=== PATIENT | male | born 1995 | race Caucasian/White ===

== ENCOUNTER 2019-07-02 17:39 | Emergency (ER) | payer OTHER ==
[~2019-07-02] VITALS: Ht 175.3 cm; Wt 142.9 kg
[~2019-07-02 17:39] MED LIST: MPR22T TP
--- OUTSIDE RECORDS SUMMARY | 2019-07-02 17:44 | XMS REPORT ---
Author Author Migration, Doctor Organization [facility] Address Unknown Phone Unavailable Care Team Providers Care Toilet And Laundry Soap Supervisor Name Role Phone Migration, Doctor Unavailable Unavailable PROBLEMS Type Condition ICD9-CM Code SJL05-XT Code Onset Dates Condition Status SNOMED Code Problem Dietary surveillance and counseling V65.3 Active 129629651 Problem Acute upper respiratory infections of unspecified site 465.9 Active 89542331 Problem Obesity, unspecified 278.00 Active 606165609 Problem Intestinal infection due to other organism, NEC 008.8 Active 65074964 Problem Acute sinusitis, unspecified 461.9 Active 66481219 Problem Unspecified essential hypertension 401.9 Active 51349786 Problem Allergic rhinitis due to pollen 477.0 Active 33010740 Problem Depressive disorder, not elsewhere classified 311 Active 47874523 ALLERGIES No Information ENCOUNTERS Encounter Location Date Diagnosis [facility] [address] [address] Sep, Encounter for immunization Z23 [facility] [address] [address] Feb, [facility] [address] [address] Feb, [facility] [id number] [place] [address] Nov, [facility] [id number] [place] [address] Nov, [facility] [address] [address] Jun, [facility] [address] [address] Jun, [facility] [id number] [place] [address] May, [facility] [place] [facility] [address] [id number] [place] [address] May, [facility] [place] [facility] [address] [id number] [place] [address] Apr, [facility] [place] [facility] [address] [id number] [place] [address] Apr, [facility] [place] [facility] [address] [id number] [place] [address] Feb, [facility] [place] [facility] [address] [id number] [place] [address] Feb, [facility] [place] [facility] [address] [id number] [place] [address] Dec, [facility] [place] [facility] [address] [id number] [place] [address] Dec, [facility] [place] [facility] [address] [id number] [place] [address] Sep, [facility] [place] [facility] [address] [id number] [place] [address] Sep, [facility] [place] [facility] [address] [id number] [place] [address] March, [facility] [place] [facility] [address] [id number] [place] [address] March, [facility] [place] [facility] [address] [id number] [place] [address] March, [facility] [place] [facility] [address] [id number] [place] [address] March, [facility] [place] [facility] [address] [id number] [place] [address] March, [facility] [place] [facility] [address] [id number] [place] [address] Feb, [facility] [place] [facility] [address] [id number], [place] [address] Jan, [facility] [address] [id number] [address] Nov, [facility] [address], [place] [address] Aug, [facility] [address], [place] [address] Aug, [facility] [address], [place] [address] May, [facility] [address], [place] [address] March, [facility] [id number] [place] [address] Feb, [facility] [address], [place] [address] Dec, [facility] [address], [place] [address] Jul, [facility] [address], [place] [address] Sep, [facility] [address], [place] [address] Sep, [facility] [address] [id number] [address] Sep, IMMUNIZATIONS No Known Immunizations SOCIAL HISTORY Never Assessed REASON FOR VISIT [facility] [place] VITAL SIGNS MEDICATIONS Medication Instructions Dosage Frequency Start Date End Date Duration Status Ulesfia 5 % 1 ronn by Topical route 1 time per week for 2 dose(s) May, Active Sklice 0.5 % 1 Ronn by Topical route every week Apply to dry hair. leave on 10 minutes and rinse hair. Comb out hair Nov, Active fluticasone 50 mcg/actuation 2 sprays by Nasal route 1 time per day March, Active Natroba 0.9 % apply 120 mL by Topical route 1 time per day Jun, Active cetirizine 10 mg 1 tablet by Oral route 1 daily March, Active RESULTS No Results PROCEDURES No Known procedures INSTRUCTIONS MEDICATIONS ADMINISTERED No Known Medications
--- OUTSIDE RECORDS SUMMARY | 2019-07-02 17:44 | XMS REPORT ---
Author Author Migration, Doctor Organization [facility] Address Unknown Phone Unavailable Care Team Providers Care Bowl Sander Name Role Phone Migration, Doctor Unavailable Unavailable PROBLEMS Type Condition ICD9-CM Code HQW52-ID Code Onset Dates Condition Status SNOMED Code Problem Dietary surveillance and counseling V65.3 Active 868596548 Problem Acute upper respiratory infections of unspecified site 465.9 Active 66842383 Problem Obesity, unspecified 278.00 Active 219749555 Problem Intestinal infection due to other organism, NEC 008.8 Active 56205652 Problem Acute sinusitis, unspecified 461.9 Active 50821573 Problem Unspecified essential hypertension 401.9 Active 14566035 Problem Allergic rhinitis due to pollen 477.0 Active 05521756 Problem Depressive disorder, not elsewhere classified 311 Active 41942152 ALLERGIES No Information ENCOUNTERS Encounter Location Date Diagnosis [facility] [address] [address] Sep, Encounter for immunization Z23 [facility] [address] [address] Feb, [facility] [address] [address] Feb, [facility] [id number] [place] [address] Nov, [facility] [id number] [place] [address] Nov, [facility] [address] [address] Jun, [facility] [address] [address] Jun, [facility] [id number] [place] [address] May, [facility] [place] [facility] [address] [id number] [place] [address] May, [facility] [place] [facility] [address] [id number] [place] [address] Apr, [facility] [place] [facility] [address] [id number] [place] [address] Apr, [facility] [place] [facility] [address] [id number] [place] [address] Feb, [facility] [place] [facility] [address] [id number] [place] [address] Feb, [facility] [place] [facility] [address] [id number] [place] [address] Dec, [facility] [place] [facility] [address] [id number] [place] [address] Dec, [facility] [place] [facility] [address] [id number] [place] [address] Sep, [facility] [place] [facility] [address] [id number] [place] [address] Sep, [facility] [place] [facility] [address] [id number] [place] [address] March, [facility] [place] [facility] [address] [id number] [place] [address] March, [facility] [place] [facility] [address] [id number] [place] [address] March, [facility] [place] [facility] [address] [id number] [place] [address] March, [facility] [place] [facility] [address] [id number] [place] [address] March, [facility] [place] [facility] [address] [id number] [place] [address] Feb, [facility] [place] [facility] [address] [id number] [address] Jan, [facility] [address] [facility] [id number] [address] Nov, [facility] [address] [facility] [id number] [address] Aug, [facility] [address] [address] Aug, [facility] [address] [facility] [id number] [address] May, [facility] [id number] [address] March, [facility] [address] [address] Feb, [facility] [address] [address] Dec, [facility] [address] [address] Jul, [facility] [address] [address] Sep, [facility] [address] [address] Sep, [facility] [id number] [address] Sep, IMMUNIZATIONS No Known Immunizations SOCIAL HISTORY Never Assessed REASON FOR VISIT [facility] [place] PLAN OF CARE VITAL SIGNS MEDICATIONS Unknown Medications RESULTS No Results PROCEDURES No Known procedures INSTRUCTIONS MEDICATIONS ADMINISTERED No Known Medications
--- OUTSIDE RECORDS SUMMARY | 2019-07-02 17:44 | XMS REPORT ---
Author Author Migration, Doctor Organization [facility] Address Unknown Phone Unavailable Care Team Providers Care Piece Goods Clerk Name Role Phone Migration, Doctor Unavailable Unavailable PROBLEMS Type Condition ICD9-CM Code YJW13-BU Code Onset Dates Condition Status SNOMED Code Problem Dietary surveillance and counseling V65.3 Active 662697202 Problem Acute upper respiratory infections of unspecified site 465.9 Active 30038439 Problem Obesity, unspecified 278.00 Active 717181832 Problem Intestinal infection due to other organism, NEC 008.8 Active 30575892 Problem Acute sinusitis, unspecified 461.9 Active 57331145 Problem Unspecified essential hypertension 401.9 Active 07388354 Problem Allergic rhinitis due to pollen 477.0 Active 47564555 Problem Depressive disorder, not elsewhere classified 311 Active 52319960 ALLERGIES No Information ENCOUNTERS Encounter Location Date Diagnosis [facility] [address] [address] Sep, Encounter for immunization Z23 [facility] [address] [address] Feb, [facility] [address] [address] Feb, [facility] [id number] [place] [address] Nov, [facility] [id number] [place] [address] Nov, [facility] [address] [address] Jun, [facility] [address] [address] Jun, [facility] [id number] [place] [address] May, [facility] [place] [facility] [address] [id number] [place] [address] May, [facility] [place] [facility] [address] [id number] [place] [address] Apr, [facility] [place] [facility] [address] [id number] [place] [address] Apr, [facility] [place] [facility] [address] [id number] [place] [address] Feb, [facility] [place] [facility] [address] [id number] [place] [address] Feb, [facility] [place] [facility] [address] [id number] [place] [address] Dec, [facility] [place] [facility] [address] [id number] [place] [address] Dec, [facility] [place] [facility] [address] [id number] [place] [address] Sep, [facility] [place] [facility] [address] [id number] [place] [address] Sep, [facility] [place] [facility] [address] [id number] [place] [address] March, [facility] [place] [facility] [address] [id number] [place] [address] March, [facility] [place] [facility] [address] [id number] [place] [address] March, [facility] [place] [facility] [address] [id number] [place] [address] March, [facility] [place] [facility] [address] [id number] [place] [address] March, [facility] [place] [facility] [address] [id number] [place] [address] Feb, [facility] [place] [facility] [address] [id number], [place] [address] Jan, [facility] [address] [facility] [id number], [place] [address] Nov, [facility] [address] [facility] [id number], [place] [address] Aug, [facility] [address], [place] [address] Aug, [facility] [address] [facility] [id number], [place] [address] May, [facility] [address] [id number], [place] [address] March, [facility] [address], [place] [address] Feb, [facility] [address], [place] [address] Dec, [facility] [address], [place] [address] Jul, [facility] [address], [place] [address] Sep, [facility] [address], [place] [address] Sep, [facility] [address] [id number], [place] [address] Sep, IMMUNIZATIONS No Known Immunizations SOCIAL HISTORY Never Assessed REASON FOR VISIT [facility] [place] OF CARE VITAL SIGNS MEDICATIONS Unknown Medications RESULTS No Results PROCEDURES No Known procedures INSTRUCTIONS MEDICATIONS ADMINISTERED No Known Medications
--- OUTSIDE RECORDS SUMMARY | 2019-07-02 17:45 | XMS REPORT ---
Author Author Migration, Doctor Organization [facility] Address Unknown Phone Unavailable Care Team Providers Care Kiln Door Repairer Name Role Phone Migration, Doctor Unavailable Unavailable PROBLEMS Type Condition ICD9-CM Code TOK11-EA Code Onset Dates Condition Status SNOMED Code Problem Dietary surveillance and counseling V65.3 Active 579389176 Problem Acute upper respiratory infections of unspecified site 465.9 Active 75367735 Problem Obesity, unspecified 278.00 Active 460631930 Problem Intestinal infection due to other organism, NEC 008.8 Active 15131113 Problem Acute sinusitis, unspecified 461.9 Active 31124120 Problem Unspecified essential hypertension 401.9 Active 44715468 Problem Allergic rhinitis due to pollen 477.0 Active 85906875 Problem Depressive disorder, not elsewhere classified 311 Active 77067018 ALLERGIES No Information ENCOUNTERS Encounter Location Date Diagnosis [facility] [address] [address] Sep, Encounter for immunization Z23 [facility] [address] [address] Feb, [facility] [address] [address] Feb, [facility] [id number] [place] [address] Nov, [facility] [id number] [place] [address] Nov, [facility] [address] [address] Jun, [facility] [address] [address] Jun, [facility] [id number] [place] [address] May, [facility] [place] [facility] [address] [id number] [place] [address] May, [facility] [place] [facility] [address] [id number] [place] [address] Apr, [facility] [place] [facility] [address] [id number] [place] [address] Apr, [facility] [place] [facility] [address] [id number] [place] [address] Feb, [facility] [place] [facility] [address] [id number] [place] [address] Feb, [facility] [place] [facility] [address] [id number] [place] [address] Dec, [facility] [place] [facility] [address] [id number] [place] [address] Dec, [facility] [place] [facility] [address] [id number] [place] [address] Sep, [facility] [place] [facility] [address] [id number] [place] [address] Sep, [facility] [place] [facility] [address] [id number] [place] [address] March, [facility] [place] [facility] [address] [id number] [place] [address] March, [facility] [place] [facility] [address] [id number] [place] [address] March, [facility] [place] [facility] [address] [id number] [place] [address] March, [facility] [place] [facility] [address] [id number] [place] [address] March, [facility] [place] [facility] [address] [id number] [place] [address] Feb, [facility] [place] [facility] [address] [id number] [address] Jan, [facility] [address] [facility] [id number] [place] [address] Nov, [facility] [address] [facility] [id number] [place] [address] Aug, [facility] [address] [address] Aug, [facility] [address] [facility] [id number] [place] [address] May, [facility] [address] [id number] [address] March, [facility] [address] [address] Feb, [facility] [address] [address] Dec, [facility] [address] [address] Jul, [facility] [address] [address] Sep, [facility] [address] [address] Sep, [facility] [address] [id number] [address] Sep, IMMUNIZATIONS No Known Immunizations SOCIAL HISTORY Never Assessed REASON FOR VISIT [place] [place]AN OF CARE VITAL SIGNS MEDICATIONS Unknown Medications RESULTS No Results PROCEDURES No Known procedures INSTRUCTIONS MEDICATIONS ADMINISTERED No Known Medications
--- OUTSIDE RECORDS SUMMARY | 2019-07-02 17:45 | XMS REPORT ---
Author Author NADINE MARTINES [facility] eClinical[employer] Address Unknown Phone Unavailable Care Team Providers Care Assayer Helper Name Role Phone NADINE MARTINES CP Unavailable Allergies No Known Allergies Problems Problem Type Condition Code Onset Dates Condition Status Problem Intestinal infection due to other organism, NEC 008.8 Active Assessment Encounter for immunization Z23 Active Problem Dietary surveillance and counseling V65.3 Active Problem Allergic rhinitis due to pollen 477.0 Active Problem Depressive disorder, not elsewhere classified 311 Active Problem Unspecified essential hypertension 401.9 Active Problem Acute sinusitis, unspecified 461.9 Active Problem Obesity, unspecified 278.00 Active Problem Acute upper respiratory infections of unspecified site 465.9 Active Medications No Known Medications Procedures Procedure Coding System Code Date SINGLE IMMUNIZATION ADMIN CPT-4 88240 Oct 21, 2015 VARICELLA CPT-4 66327 Oct 21, 2015 Results No Known Results Immunizations Vaccine Administration Date VARICELLA Oct 21, 2015 Summary Purpose eClinicalWorks Submission
--- OUTSIDE RECORDS SUMMARY | 2019-07-02 17:45 | XMS REPORT | Continuity of Care Document ---
Author Organization Unknown Address Unknown Phone Unavailable Allergies Active Description Code Type Severity Reaction Onset Reported/Identified Relationship to Patient Clinical Status Yes Cephalosporins Drug Allergy N/A N/A 04/05/2013 Medications There is no data. Problems Date Dx Coded Attending Type Code Diagnosis Diagnosed By 08/06/2008 845.10 Sprain/strain Foot 08/06/2008 BRIE MAYEN APRN 845.10 Sprain/strain Foot 08/06/2008 845.10 Sprain/strain Foot 08/06/2008 IVANA BRENNER MD 845.10 Sprain/strain Foot 08/06/2008 MICHAEL PORTILLO MD 845.10 Sprain/strain Foot 08/06/2008 AMBREEN DOMINGUEZ DDS 845.10 Sprain/strain Foot 08/06/2008 845.10 Sprain/strain Foot 08/12/2008 462 Pharyngitis Acute 08/12/2008 787.01 Nausea With Vomiting 08/12/2008 787.91 Diarrhea 08/12/2008 BRIE MAYEN APRN 462 Pharyngitis Acute 08/12/2008 BRIE MAYEN APRN 787.01 Nausea With Vomiting 08/12/2008 BRIE MAYEN APRN 787.91 Diarrhea 08/12/2008 462 Pharyngitis Acute 08/12/2008 787.01 Nausea With Vomiting 08/12/2008 787.91 Diarrhea 08/12/2008 IVANA BRENNER MD 46Alhaji Pharyngitis Acute 08/12/2008 IVANA BRENNER MD 787.01 Nausea With Vomiting 08/12/2008 IVANA BRENNER MD 787.91 Diarrhea 08/12/2008 MICHAEL PORTILLO MD 46Alhaji Pharyngitis Acute 08/12/2008 MICHAEL PORTILLO MD 787.01 Nausea With Vomiting 08/12/2008 MICHAEL PORTILLO MD 787.91 Diarrhea 08/12/2008 AMBREEN DOMINGUEZ DDS 46Alhaji Pharyngitis Acute 08/12/2008 AMBREEN DOMINGUEZ DDS 787.01 Nausea With Vomiting 08/12/2008 WHITE DDSAMBREEN J 787.91 Diarrhea 08/12/2008 462 Pharyngitis Acute 08/12/2008 787.01 Nausea With Vomiting 08/12/2008 787.91 Diarrhea 07/18/2009 V70.3 Sports/school Exam 07/18/2009 BRIE MAYEN APRN V70.3 Sports/school Exam 07/18/2009 V70.3 Sports/school Exam 07/18/2009 IVANA BRENNER MD V70.3 Sports/school Exam 07/18/2009 MICHAEL PORTILLO MD V70.3 Sports/school Exam 07/18/2009 AMBREEN DOMINGUEZ DDS V70.3 Sports/school Exam 07/18/2009 V70.3 Sports/school Exam 10/01/2009 008.8 Gastroenteritis Viral 10/01/2009 BRIE MAYEN APRN 008.8 Gastroenteritis Viral 10/01/2009 008.8 Gastroenteritis Viral 10/01/2009 IVANA BRENNER MD 008.8 Gastroenteritis Viral 10/01/2009 MICHAEL PORTILLO MD 008.8 Gastroenteritis Viral 10/01/2009 AMBREEN DOMINGUEZ DDS 008.8 Gastroenteritis Viral 10/01/2009 008.8 Gastroenteritis Viral 10/03/2009 780.79 Malaise And Fatigue 10/03/2009 BRIE MAYEN APRN 780.79 Malaise And Fatigue 10/03/2009 780.79 Malaise And Fatigue 10/03/2009 IVANA BRENNER MD 780.79 Malaise And Fatigue 10/03/2009 MICHAEL PORTILLO MD 780.79 Malaise And Fatigue 10/03/2009 AMBREEN DOMINGUEZ DDS 780.79 Malaise And Fatigue 10/03/2009 780.79 Malaise And Fatigue 12/12/2009 790.29 Prediabetes 12/12/2009 BRIE MAYEN APRN 790.29 Prediabetes 12/12/2009 790.29 Prediabetes 12/12/2009 IVANA BRENNER MD 790.29 Prediabetes 12/12/2009 MICHAEL PORTILLO MD 790.29 Prediabetes 12/12/2009 AMBREEN DOMINGUEZ DDS 790.29 Prediabetes 12/12/2009 790.29 Prediabetes 08/11/2010 079.99 Unspecified Viral Infection In Conditions Classified Elsewhere And Of Unspecified Site 08/11/2010 BRIE MAYEN APRN 079.99 Unspecified Viral Infection In Conditions Classified Elsewhere And Of Unspecified Site 08/11/2010 079.99 Unspecified Viral Infection In Conditions Classified Elsewhere And Of Unspecified Site 08/11/2010 IVANA BRENNER MD 079.99 Unspecified Viral Infection In Conditions Classified Elsewhere And Of Unspecified Site 08/11/2010 MICHAEL PORTILLO MD 079.99 Unspecified Viral Infection In Conditions Classified Elsewhere And Of Unspecified Site 08/11/2010 AMBREEN DOMINGUEZ DDS 079.99 Unspecified Viral Infection In Conditions Classified Elsewhere And Of Unspecified Site 08/11/2010 079.99 Unspecified Viral Infection In Conditions Classified Elsewhere And Of Unspecified Site 08/19/2010 466.0 Acute Bronchitis 08/19/2010 BRIE MAYEN APRN 466.0 Acute Bronchitis 08/19/2010 466.0 Acute Bronchitis 08/19/2010 IVANA BRENNER MD 466.0 Acute Bronchitis 08/19/2010 MICHAEL PORTILLO MD 466.0 Acute Bronchitis 08/19/2010 AMBREEN DOMINGUEZ DDS 466.0 Acute Bronchitis 08/19/2010 466.0 Acute Bronchitis 04/22/2011 V06.5 Dt, Tetanus-diphtheria [td] ,tdap 04/22/2011 BRIE MAYEN APRN V06.5 Dt, Tetanus-diphtheria [td] ,tdap 04/22/2011 V06.5 Dt, Tetanus-diphtheria [td] ,tdap 04/22/2011 IVANA BRENNER MD V06.5 Dt, Tetanus-diphtheria [td] ,tdap 04/22/2011 MICHAEL PORTILLO MD V06.5 Dt, Tetanus-diphtheria [td] ,tdap 04/22/2011 AMBREEN DOMINGUEZ DDS V06.5 Dt, Tetanus-diphtheria [td] ,tdap 04/22/2011 V06.5 Dt, Tetanus-diphtheria [td] ,tdap 01/12/2012 465.9 UPPER RESPIRATORY INFECTION 01/12/2012 BRIE MAYEN APRN 465.9 UPPER RESPIRATORY INFECTION 01/12/2012 465.9 UPPER RESPIRATORY INFECTION 01/12/2012 IVANA BRENNER MD 465.9 UPPER RESPIRATORY INFECTION 01/12/2012 MICHAEL PORTILLO MD 465.9 UPPER RESPIRATORY INFECTION 01/12/2012 AMBREEN DOMINGUEZ DDS 465.9 UPPER RESPIRATORY INFECTION 01/12/2012 465.9 UPPER RESPIRATORY INFECTION 03/31/2012 311 DEPRESSIVE DISORDER NOS 03/31/2012 BRIE MAYEN APRN 311 DEPRESSIVE DISORDER NOS 03/31/2012 311 DEPRESSIVE DISORDER NOS 03/31/2012 IVANA BRENNER MD 311 DEPRESSIVE DISORDER NOS 03/31/2012 MICHAEL PORTILLO MD 311 DEPRESSIVE DISORDER NOS 03/31/2012 AMBREEN DOMINGUEZ DDS 311 DEPRESSIVE DISORDER NOS 03/31/2012 311 DEPRESSIVE DISORDER NOS 09/26/2012 008.8 GASTROENTERITIS, VIRAL 09/26/2012 BRIE MAYEN APRN 008.8 GASTROENTERITIS, VIRAL 09/26/2012 008.8 GASTROENTERITIS, VIRAL 09/26/2012 IVANA BRENNER MD 008.8 GASTROENTERITIS, VIRAL 09/26/2012 MICHAEL PORTILLO MD 008.8 GASTROENTERITIS, VIRAL 09/26/2012 AMBREEN DOMINGUEZ DDS 008.8 GASTROENTERITIS, VIRAL 09/26/2012 008.8 GASTROENTERITIS, VIRAL 02/22/2013 BRIE MAYEN APRN 461.9 SINUSITIS ACUTE 02/22/2013 461.9 SINUSITIS ACUTE 02/22/2013 IVANA BRENNER MD 461.9 SINUSITIS ACUTE 02/22/2013 MICHAEL PORTILLO MD 461.9 SINUSITIS ACUTE 02/22/2013 AMBREEN DOMINGUEZ DDS 461.9 SINUSITIS ACUTE 04/05/2013 278.00 OBESITY 04/05/2013 477.0 ALLERGIC RHINITIS DUE TO POLLEN 04/05/2013 V65.3 COUNSELING - DIETARY 04/05/2013 IVANA BRENNER MD 278.00 OBESITY 04/05/2013 IVANA BRENNER MD 477.0 ALLERGIC RHINITIS DUE TO POLLEN 04/05/2013 IVANA BRENNER MD V65.3 COUNSELING - DIETARY 04/05/2013 MICHAEL PORTILLO MD 278.00 OBESITY 04/05/2013 MICHAEL PORTILLO MD 477.0 ALLERGIC RHINITIS DUE TO POLLEN 04/05/2013 MICHAEL PORTILLO MD V65.3 COUNSELING - DIETARY 04/05/2013 AMBREEN DOMINGUEZ DDS 278.00 OBESITY 04/05/2013 AMBREEN DOMINGUEZ DDS 477.0 ALLERGIC RHINITIS DUE TO POLLEN 04/05/2013 AMBREEN DOMINGUEZ DDS V65.3 COUNSELING - DIETARY 01/22/2014 MICHAEL PORTILLO MD 401.9 UNSPECIFIED ESSENTIAL HYPERTENSION 01/22/2014 AMBREEN DOMINGUEZ DDS 401.9 UNSPECIFIED ESSENTIAL HYPERTENSION Procedures Code Description [place] [address] ROUTINE VENIPUNCTURE 04/06/2013 16336 A1C (IN-HOUSE) 04/06/2013 06786 CBC 04/06/2013 21266 CMP 04/06/2013 95928 LIPID PANEL 04/06/2013 17557 TSH 04/06/2013 65792 T4 FREE 04/06/2013 77300 INSULIN LEVEL 04/07/2013 99935 GLUCOSE 01/22/2014 CARDIOLOG [facility], CARDIOLOGY 01/22/2014 Results There is no data. Encounters ACCT No. Visit Date/Time Discharge Status Pt. Type Provider Facility Loc./Unit Complaint [id number] 04/08/2014 14:50:00 04/08/2014 23:59:59 CLS Outpatient AMBREEN DOMINGUEZ DDS [id number] 01/22/2014 14:39:00 01/22/2014 23:59:59 CLS Outpatient MICHAEL PORTILLO MD [id number] 04/06/2013 09:23:00 04/06/2013 23:59:59 CLS Outpatient IVANA BRENNER MD [id number] 02/22/2013 15:22:00 02/22/2013 23:59:59 CLS Outpatient BRIE MAYEN APRN [id number] 12/07/2012 13:02:00 12/07/2012 23:59:59 CLS Outpatient [id number] 09/26/2012 10:43:00 09/26/2012 23:59:59 CLS Outpatient [id number] 04/05/2013 14:38:00 Document Registration
--- NOTE | 2019-07-02 18:04 | NUR ---
done leroy pt 1813.pt here with " father and mother". pt alert gcs 15. pt relates was at [facility] last week c/o dyspnea and dx with anxiety. pt here now c/o dyspnea. pt appears with ? hyperventilation vs ? kussmauls breathing . pt appears slightly anxious and no carpal pedal spasms noted though pt is on nrm with zero liters of o2 placed by dr earlier. pt denies chest pain. c/o " little" abd pain. denies n/v and relates diarrhea as" i freq. have diarrhea". someone already started iv and lesli labs. pt has no h/o diabetes. tele applied by me shows sr 90. lungs cta with decreased aeration right base anterially. abd firm and nondistended though pt appears obese and overweight including abd. neg pain with palpation and neg pulsating massss noted as pt also c/o back pain. bp machine is 141/89 ausc hr 92 reg ausc resp 40 recheck temp 99.1 though pt feels hotter then that. p ox r/a is 99.
--- NOTE | 2019-07-02 18:07 | NUR ---
Patient is complaining of feeling numb all over and states his hands and face are tingling. Patient is tearful and breathing rapidly. He states this is similar to the last panic attack 1 week ago when he was seen at [facility].
--- NOTE | 2019-07-02 18:10 | ED Respiratory ---
General Chief Complaint: Respiratory Problems Stated Complaint: SOA Nursing Triage Note: Patient brought to Er with complaint of shortness of breath, nasal congestion, and generalized weakness. Patient states this started suddenly today approximately 30 minutes ago. Patient states he was inside working at [employer] when the symptoms began. Patient states he was seen appoximately 2 weeks ago in ER for an anxiety attack. Source: patient Exam Limitations: no limitations History of Present Illness Date Seen by Provider: Jul 02, 2019 Time Seen by Provider: 17:50 Initial Comments Patient presents to ER by private conveyance with mom and dad and chief complaint that about an hour ago he was carrying packages of sher up one and a half flights of stairs and became very short of breath. No chest pain but feeli ng weakness tingling in his hands and numbness in his face. This happened about a month ago when he went to [place] [facility] and was told he had a panic attack. He was put on Lexapro as well as a couple other medications which he's been taking. He says this is different however because while he still had shortness of breath last time he also had vomiting and he doesn't feel nauseated today. He's having no swelling in his hands or feet. No significant medical history no coronary history no past familial history. No recent illness fevers chills nausea vomiting being laid up or immobilized or recent surgeries. Allergies and Home Medications Allergies Uncoded Allergies: DENTAL ANESTHETIC (Adverse Reaction, Severe, SWELLING IN NECK, 07/11/11) Home Medications Mupirocin 22 Gm Tube, 0 TP TID APPLY TO SPARINGLY TO AFFECTED AREA(S) Prescribed by: RALF CUELLO on 07/11/111933 Patient Home Medication List Home Medication List Reviewed: Yes Review of Systems Review of Systems Constitutional: No chills, No fever, No malaise; weakness EENTM: No ear discharge, No ear pain Respiratory: No cough, No phlegm; short of breath; No wheezing Cardiovascular: No chest pain, No edema, No Hx of Intervention, No palpitations Gastrointestinal: No abdominal pain, No constipation, No diarrhea Genitourinary: No discharge, No dysuria Musculoskeletal: No back pain, No joint pain Skin: No pruritus, No rash Psychiatric/Neurological: Denies Headache; Numbness, Paresthesia Past Yijxtdy-Hdljej-Rmqkyo Hx Patient Social History Alcohol Use: Denies Use Recreational Drug Use: No Smoking Status: Never a Smoker 2nd Hand Smoke Exposure: No (stopped chewing tobacco ) Recent Foreign Travel: No Contact w/Someone Who Travel: No Recent Infectious Disease Expo: No Recent Hopitalizations: No Seasonal Allergies Seasonal Allergies: Yes Past Medical History Surgeries: No Respiratory: No Cardiac: No Neurological: No Genitourinary: No Gastrointestinal: No Musculoskeletal: No Endocrine: No HEENT: No Cancer: No Psychosocial: Yes Anxiety Integumentary: No Physical Exam Vital Signs - First Documented 07/02/19 17:45 Temp 100.2 Pulse 95 Resp 20 B/P (MAP) 144/96 (112) Pulse Ox 98 O2 Delivery Room Air Capillary Refill : Less Than 3 Seconds Height: 5'9.00" Weight: 315lbs. oz. 142.772671nd; BMI Method:Stated General Appearance: WD/WN, no apparent distress Eyes: Bilateral Eye Normal Inspection, Bilateral Eye PERRL, Bilateral Eye EOMI HEENT: PERRL/EOMI, normal ENT inspection, pharynx normal Neck: full range of motion, normal inspection Respiratory: chest non-tender, lungs clear, normal breath sounds, no respiratory distress, accessory muscle use (mild) Cardiovascular: normal peripheral pulses, regular rate, rhythm, no edema, no murmur Gastrointestinal: normal bowel sounds, non tender, soft Extremities: normal range of motion, non-tender, normal inspection, no pedal edema, no calf tenderness, normal capillary refill Neurologic/Psychiatric: alert, oriented x 3, other (anxious affect) Skin: normal color, warm/dry Progress/Results/Core Measures Suspected Sepsis Recent Fever Within 48 Hours: No Infection Criteria Present: None New/Unexplained Altered Menta: No Sepsis Screen: No Definite Risk SIRS Temperature:100.2 Pulse: 95 Respiratory Rate: 20 Laboratory Tests 07/02/19 18:00: White Blood Count 10.1 Blood Pressure 144 /96 Mean: 112 Laboratory Tests 07/02/19 18:00: Creatinine 1.18, Platelet Count 304, Total Bilirubin 1.1H Results/Orders Lab Results Laboratory Tests Test 07/02/19 18:00 07/02/19 18:11 07/02/19 18:20 07/02/19 18:33 Range/Units White Blood Count 10.1 4.3-11.0 10^3/uL Red Blood Count 5.83 4.35-5.85 10^6/uL Hemoglobin 17.5 13.3-17.7 G/DL Hematocrit 48 40-54 % Mean Corpuscular Volume 82 80-99 FL Mean Corpuscular Hemoglobin 30 25-34 PG Mean Corpuscular Hemoglobin Concent 37 H 32-36 G/DL Red Cell Distribution Width 12.7 10.0-14.5 % Platelet Count 304 130-400 10^3/uL Mean Platelet Volume 11.7 H 7.4-10.4 FL Neutrophils (%) (Auto) 82 H 42-75 % Lymphocytes (%) (Auto) 13 12-44 % Monocytes (%) (Auto) 4 0-12 % Eosinophils (%) (Auto) 1 0-10 % Basophils (%) (Auto) 0 0-10 % Neutrophils # (Auto) 8.3 H 1.8-7.8 X 10^3 Lymphocytes # (Auto) 1.3 1.0-4.0 X 10^3 Monocytes # (Auto) 0.5 0.0-1.0 X 10^3 Eosinophils # (Auto) 0.1 0.0-0.3 10^3/uL Basophils # (Auto) 0.0 0.0-0.1 10^3/uL Sodium Level 141 135-145 MMOL/L Potassium Level 3.4 L 3.6-5.0 MMOL/L Chloride Level 104 98-107 MMOL/L Carbon Dioxide Level 19 L 21-32 MMOL/L Anion Gap 18 H 5-14 MMOL/L Blood Urea Nitrogen 14 7-18 MG/DL Creatinine 1.18 0.60-1.30 MG/DL Estimat Glomerular Filtration Rate > 60 BUN/Creatinine Ratio 12 Glucose Level 117 H 70-105 MG/DL Calcium Level 11.2 H 8.5-10.1 MG/DL Corrected Calcium 8.5-10.1 MG/DL Total Bilirubin 1.1 H 0.1-1.0 MG/DL Aspartate Amino Transf (AST/SGOT) 44 H 5-34 U/L Alanine Aminotransferase (ALT/SGPT) 75 H 0-55 U/L Alkaline Phosphatase 58 40-136 U/L Troponin I < 0.028 <0.028 NG/ML C-Reactive Protein High Sensitivity 0.31 0.00-0.50 MG/DL B-Type Natriuretic Peptide < 10.0 <100.0 PG/ML Total Protein 10.0 H 6.4-8.2 GM/DL Albumin 5.5 H 3.2-4.5 GM/DL Glucometer 116 H 70-110 MG/DL Blood Gas Puncture Site RIGHT RADIAL Blood Gas Patient Temperature 98.7 Arterial Blood pH 7.62 *H 7.37-7.43 Arterial Blood Partial Pressure CO2 15 *L 35-45 MMHG Arterial Blood Partial Pressure O2 142 H 79-93 MMHG Arterial Blood HCO3 16 *L 23-27 MMOL/L Arterial Blood Total CO2 16.5 L 21.0-31.0 MMOL/L Arterial Blood Oxygen Saturation 100 94-100 % Arterial Blood Base Excess -5.3 L -2.5-2.5 MMOL/L Lucius Test POSITIVE Blood Gas Ventilator Setting NO Blood Gas Inspired Oxygen N Urine Color YELLOW Urine Clarity CLEAR Urine pH 8 5-9 Urine Specific [place] 1.015 L 1.016-1.022 Urine Protein 3+ H NEGATIVE Urine Glucose (UA) NEGATIVE NEGATIVE Urine Ketones 2+ H NEGATIVE Urine Nitrite NEGATIVE NEGATIVE Urine Bilirubin 1+ H NEGATIVE Urine Urobilinogen 12 H NORMAL MG/DL Urine Leukocyte Esterase 1+ H NEGATIVE Urine RBC (Auto) NEGATIVE NEGATIVE Urine RBC RARE /HPF Urine WBC 0-2 /HPF Urine Squamous Epithelial Cells NONE /HPF Urine Crystals NONE /LPF Urine Bacteria NEGATIVE /HPF Urine Casts NONE /LPF Urine Mucus SMALL H /LPF Urine Culture Indicated NO Urine Opiates Screen NEGATIVE NEGATIVE Urine Oxycodone Screen NEGATIVE NEGATIVE Urine Methadone Screen NEGATIVE NEGATIVE Urine Propoxyphene Screen NEGATIVE NEGATIVE Urine Barbiturates Screen NEGATIVE NEGATIVE Ur Tricyclic Antidepressants Screen NEGATIVE NEGATIVE Urine Phencyclidine Screen NEGATIVE NEGATIVE Urine Amphetamines Screen NEGATIVE NEGATIVE Urine Methamphetamines Screen NEGATIVE NEGATIVE Urine Benzodiazepines Screen POSITIVE H NEGATIVE Urine Cocaine Screen NEGATIVE NEGATIVE Urine Cannabinoids Screen NEGATIVE NEGATIVE My Orders Orders - JANIYA SHOOK Chest Pa/Lat (2 View) (07/02/19 18:06) BNP (07/02/19 18:06) Cbc With Automated Diff (07/02/19 18:06) Comprehensive Metabolic Panel (07/02/19 18:06) Hs C Reactive Protein (07/02/19 18:06) Drug Screen Stat (Urine) (07/02/19 18:06) Ua Culture If Indicated (07/02/19 18:06) Troponin I (07/02/19 18:06) Continuous Ekg Monitoring (07/02/19 18:06) Ekg Tracing (07/02/19 18:06) Accucheck Stat ONCE (07/02/19 18:10) Lorazepam Injection (Ativan Injection) (07/02/19 18:30) Arterial Blood Gas (07/02/19 18:25) Medications Given in ED Current Medications Medications Dose Ordered Sig/Donna Route Start Time Stop Time Status Last Admin Dose Admin Lorazepam 0.5 mg ONCE ONCE IVP 07/02/19 18:30 07/02/19 18:31 DC 07/02/19 18:27 0.5 MG Vital Signs/I&O 07/02/19 17:45 Temp 100.2 Pulse 95 Resp 20 B/P (MAP) 144/96 (112) Pulse Ox 98 O2 Delivery Room Air Capillary Refill : Less Than 3 Seconds Blood Pressure Mean: 112 Progress Note #1: Time: 18:20 Progress Note Patient has a history of panic attacks and appears to be having one now. We will do a thorough examination looking for pneumonia, blood clots, cardiac dysrhythmia, elevated troponin, fluid overload etc. however we put a nonrebreather which has helped some and will get an ABG and give him half a milligram of Ativan. Progress Note #2: Time: 18:55 Progress Note Patient is feeling much better more relaxed. No accessory muscle use of breathing. The Ativan has helped significantly. He does have Xanax prescribed to him but because he left the home he did not have it available today. We did lengthy counseling and taught him some coping mechanisms as well as encouraged outpatient counseling. He has follow-up with Dr. Kim. We will suggest that he increase the dose to 15 mg since he's been on it for a week and follow-up with the primary care doctor. Labs all suggest that he has blown off all his CO2 and has good oxygenation. Since he is not having hypoxia, intractable pain from a traumatic incident, high altitude sickness or other source of his hyperventilation then it must be from anxiety. ECG Initial ECG Impression Date: Jul 02, 2019 Initial ECG Impression Time: 18:25 Initial ECG Rate: 77 Initial ECG Rhythm: Normal Sinus Initial ECG Intervals: Normal Initial ECG Impression: Normal, Nonspecific Changes Initial ECG Comparisson: No Previous ECG Available Comment Interpreted ventricular conduction delay that's nonspecific. Normal sinus rhythm otherwise without any ST elevation or depression. Diagnostic Imaging Diagonstic Imaging: Xray Plain Films/CT/US/NM/MRI: chest (2v) Comments No acute cardiopulmonary process. Reviewed: Reviewed by Me Departure Impression Primary Impression: Panic attack as reaction to stress Disposition: 01 HOME, SELF-CARE Condition: Improved Departure-Patient Inst. Decision time for Depature: 18:59 Referrals: TYLOR KIM MD (PCP/Family) Primary Care Physician Patient Instructions: Panic Disorder (DC) Add. Discharge Instructions: Get some sleep today. Drink plenty of fluids. At the first sign that you're anxiety is getting worse such as cold clammy or numb hands or face, narrowing, tunnel vision or increasing shortness of breath then you should take a tablet of Xanax as prescribed. Cut one of your 10 mg escitalopram/Lexapro tablets in half and take one and a half tablets for a total of 15 mg daily until you see Dr. Kim. I suggest you follow-up in the next week or 2. Consider looking into counseling for supportive measures and how to manage your stress. All discharge instructions reviewed with patient and/or family. Voiced understanding. Work/School Note: Work Release Form Date Seen in the Emergency Department: Jul 02, 2019 Return to Work: Jul 03, 2019 Restrictions: No Restrictions Copy Copies To 1: TYLOR KIM MD, TITUS J Jul 02, 2019 18:10
--- NOTE | 2019-07-02 18:12 | NUR ---
blood sugar by glucometer by me is 116. knows
[2019-07-02 18:13] LABS: BASOPHILS % (AUTO) 0 % (0-10); EOSINOPHILS # (AUTO) 0.1 10^3/uL (0.0-0.3); EOSINOPHILS % (AUTO) 1 % (0-10); HEMATOCRIT 48 % (40-54); HEMOGLOBIN 17.5 G/DL (13.3-17.7); LYMPHOCYTES # (AUTO) 1.3 X 10^3 (1.0-4.0); LYMPHOCYTES % (AUTO) 13 % (12-44); MEAN CORPUSCULAR HEMOGLOBIN 30 PG (25-34); MEAN CORPUSCULAR HGB CONC 37 G/DL (32-36); MEAN CORPUSCULAR VOLUME 82 FL (80-99); MEAN PLATELET VOLUME 11.7 FL (7.4-10.4); MONOCYTES # (AUTO) 0.5 X 10^3 (0.0-1.0); MONOCYTES % (AUTO) 4 % (0-12); NEUTROPHILS # (AUTO) 8.3 X 10^3 (1.8-7.8); NEUTROPHILS % (AUTO) 82 % (42-75); PLATELET COUNT 304 10^3/uL (130-400); RED CELL DISTRIBUTION WIDTH 12.7 % (10.0-14.5); WHITE BLOOD COUNT 10.1 10^3/uL (4.3-11.0)
[2019-07-02 18:28] LABS: ABG BASE EXCESS -5.3 MMOL/L (-2.5-2.5); ABG OXYGEN SATURATION 100 % (94-100); ABG PO2 142 MMHG (79-93); ABG TCO2 16.5 MMOL/L (21.0-31.0); ALLENS TEST POSITIVE; INSPIRED O2 N; PATIENT TEMP 98.7; VENTILATOR NO
--- NOTE | 2019-07-02 18:29 | NUR ---
someone doing ekg
[2019-07-02 18:30] LABS: ABG PCO2 15 MMHG (35-45); ABG PH 7.62 (7.37-7.43)
[2019-07-02] MEDS ORDERED: LORazepam INJ 2 MG/ML (ATIVAN) VIAL IVP ONE (18:30)
[2019-07-02 18:32] LABS: ALANINE AMINOTRANSFERASE 75 U/L (0-55); ALBUMIN 5.5 GM/DL (3.2-4.5); ALKALINE PHOSPHATASE 58 U/L (40-136); BILIRUBIN,TOTAL 1.1 MG/DL (0.1-1.0); BUN/CREATININE RATIO 12; CALCIUM 11.2 MG/DL (8.5-10.1); CARBON DIOXIDE 19 MMOL/L (21-32); CHLORIDE 104 MMOL/L (98-107); CREATININE SERUM 1.18 MG/DL (0.60-1.30); GFR ESTIMATED > 60; GLUCOSE 117 MG/DL (70-105); POTASSIUM 3.4 MMOL/L (3.6-5.0); SODIUM 141 MMOL/L (135-145)
--- NOTE | 2019-07-02 18:33 | NUR ---
ua to lab by
[2019-07-02 18:39] LABS: CLARITY,URINE CLEAR; COLOR,URINE YELLOW; GLUCOSE, URINE (UA) NEGATIVE (NEGATIVE); KETONES,URINE 2+ (NEGATIVE); LEUKOCYTE ESTERASE ,URINE 1+ (NEGATIVE); NITRITE,URINE NEGATIVE (NEGATIVE); PH,URINE 8 (5-9); PROTEIN,URINE 3+ (NEGATIVE); UROBILINOGEN,URINE 12 MG/DL (NORMAL)
[2019-07-02 18:47] LABS: BACTERIA,URINE NEGATIVE /HPF; BILIRUBIN,URINE 1+ (NEGATIVE); RBC,URINE RARE /HPF; WBC,URINE 0-2 /HPF
[2019-07-02 18:52] LABS: AMPHETAMINE SCREEN, URINE NEGATIVE (NEGATIVE); BARBITURATE SCREEN URINE NEGATIVE (NEGATIVE); BENZODIAZEPINES SCREEN URINE POSITIVE (NEGATIVE); CANNABINOID SCREEN, URINE NEGATIVE (NEGATIVE); COCAINE SCREEN URINE NEGATIVE (NEGATIVE); METHADONE STAT NEGATIVE (NEGATIVE); METHAMPHETAMINE SCREEN URINE S NEGATIVE (NEGATIVE); OPIATE SCREEN URINE NEGATIVE (NEGATIVE); OXYCODONE STAT NEGATIVE (NEGATIVE); PROPOXYPHENE STAT NEGATIVE (NEGATIVE); TRICYCLIC ANTIDEPRESSANTS SCRE NEGATIVE (NEGATIVE)
--- NOTE | 2019-07-02 19:08 | Diagnostic Imaging Report ---
INDICATION: Short of breath, nasal congestion, and generalized weakness started approximately 30 minutes ago. EXAMINATION: Two-view chest dated 07/02/2019. FINDINGS: Two views of the chest. The cardiomediastinal silhouette is unremarkable. The pulmonary vasculature is within normal limits. The lungs and pleural spaces are clear. IMPRESSION: No evidence of an acute cardiopulmonary process. Dictated by: Dictated on workstation # [id number]
--- NOTE | 2019-07-02 19:27 | NUR ---
pt remains alert gcs 15. both parents remain in the room. pt no longer appears anxious and hyperventilating but pt is talkative, found nrm on pt at 5 liters. i d/cd it. pt denies chest pain then changed to off and on " sharp" pain right chest. none now. denies abd pain but c/o nonspecific pain " kidney". denies dyspnea and no acute sighns of dyspnea noted. pain rating 5. bp machine is 106/72 ausc hr 100 reg ausc resp 24 slightly deep. recheck temp oral is 98.4 p ox r/a is 98. found tele off reapplied shows st.
[2019-07-02 20:02] VITALS: BP 131/83
--- NOTE | 2019-07-02 20:02 | NUR ---
d/c instructions to pt. told to read all papers. no scripts given. pt left ambulatory with mom and dad. pt knows f/u. i went over the handtyped by information on the chart. iv d/cd by me prior to d/c. work release given. d/c vs bp machine is 131/83 ausc hr 72 reg ausc resp 16 normal recheck temp 98.3 p ox r/a is 95. tele shows sr 61.
== END 2019-07-02 20:02 | disposition home or self-care (01) ==
LOC: EDUNIT# 17:39 → ER 17:41
DX: F41.0 Panic disorder [episodic paroxysmal anxiety] (principal); F43.9 Reaction to severe stress, unspecified; Z88.4 Allergy status to anesthetic agent
CPT/HCPCS: 36415; 71046; 80053; 80306; 81000; 82805; 82962; 83880; 84484; 85025; 86141; 93005

== ENCOUNTER 2023-05-20 14:14 | Emergency (ER) | payer OTHER ==
[~2023-05-20] VITALS: Ht 180 cm; Wt 158.0 kg
--- NOTE | 2023-05-20 14:49 | ED Abdominal Pain ---
General Chief Complaint: Abdominal/GI Problems Stated Complaint: ABD PAIN | LOWER BACK PAIN | CANNOT DEFECATE Nursing Triage Note: PT AMB TO RM, PT CO OF CONSTIPATION FOR APPROX 2-3 DAYS, PT HAS ABD ACROSS LOWER ABD 5/10. DENIES VOMITNG OR DIARRHEA. PT HAS TAKEN 1/2 OF LAXATIVE AND HAS BEEN DRINKING LAXATIVE Source of Information: Patient Exam Limitations: No Limitations History of Present Illness Date Seen by Provider: May 20, 2023 Time Seen by Provider: 14:46 Initial Comments Patient is a 27-year-old male who presents ED with lower abdominal pain. Pain started last night described as sharp. Pain is intermittent. Pain is mild at this time and refuse anything for pain. Patient report nausea without vomiting or diarrhea. States has been constipated past 2 days. No urinary symptoms or history of previous abdominal surgery. Patient attempted to take a oral laxative and drink apple juice without much improvement. No history of previous abdominal surgery. Denies fever, chills, body aches, chest pain, shortness of breath. Denies feeling distended or bloating. Reports feeling "gassy". Allergies and Home Medications Allergies Uncoded Allergies: DENTAL ANESTHETIC (Adverse Reaction, Severe, SWELLING IN NECK, 07/11/11) Patient Home Medication List Home Medication List Reviewed: Yes Mupirocin (Bactroban Ointment 22 Gm) 22 Gm Tube, 0 TP TID Prescribed by: RALF CUELLO on 07/11/111933 Review of Systems Review of Systems Constitutional: No chills, No diaphoresis EENTM: No Eye Pain, No Ear Pain, No Mouth Pain, No Mouth Swelling Respiratory: Denies Cough, Denies Orthopnea Cardiovascular: Denies Chest Pain Gastrointestinal: Abdominal Pain, Constipated Genitourinary: Denies Burning, Denies Discharge Musculoskeletal: No back pain Skin: No change in color, No change in hair/nails Psychiatric/Neurological: Denies Anxiety, Denies Depressed All Other Systems Reviewed Negative Unless Noted: Yes Past Slxzjsj-Rjfuim-Rnfxwa Hx Patient Social History Tobacco Use?: No Substance use?: No Alcohol Use?: No Pt feels they are or have been: No Seasonal Allergies Seasonal Allergies: Yes Past Medical History Surgeries: No Respiratory: No Cardiac: No Neurological: No Genitourinary: No Gastrointestinal: No Musculoskeletal: No Endocrine: No HEENT: No Cancer: No Psychosocial: Yes Anxiety Integumentary: No Physical Exam Vital Signs Vital Signs - First Documented 05/20/23 14:25 Temp 37.0 Pulse 108 Resp 16 B/P (MAP) 123/75 (91) Pulse Ox 96 Capillary Refill : Less Than 3 Seconds Height/Weight/BMI Height: 5'9.00" Weight: 315lbs. oz. 142.976402me; 48.00 BMI Method:Stated General Appearance: WD/WN, no apparent distress HEENT: PERRL/EOMI, normal ENT inspection, TMs normal, pharynx normal Neck: non-tender, full range of motion, supple Respiratory: chest non-tender, lungs clear, normal breath sounds, no respiratory distress, no accessory muscle use Cardiovascular: regular rate, rhythm, no edema, no gallop, no JVD Gastrointestinal: normal bowel sounds, soft, no organomegaly, tenderness (Left and right and suprapubic tenderness. Normal bowel sounds. No rebound or guarding.) Extremities: normal range of motion, non-tender, normal inspection, no pedal edema Back: normal inspection, no CVA tenderness, no vertebral tenderness Neurologic/Psychiatric: jersey knitter II-XII nml as tested, no motor/sensory deficits, alert, normal mood/affect, oriented x 3 Skin: normal color, warm/dry Progress/Results/Core Measures Results/Orders Lab Results Laboratory Tests Test 05/20/23 14:50 05/20/23 15:14 Range/Units White Blood Count 7.8 4.3-11.0 10^3/uL Red Blood Count 4.93 4.30-5.52 10^6/uL Hemoglobin 14.6 13.3-17.7 g/dL Hematocrit 43 40-54 % Mean Corpuscular Volume 87 80-99 fL Mean Corpuscular Hemoglobin 30 25-34 pg Mean Corpuscular Hemoglobin Concent 34 32-36 g/dL Red Cell Distribution Width 12.2 10.0-14.5 % Platelet Count 236 130-400 10^3/uL Mean Platelet Volume 10.8 9.0-12.2 fL Immature Granulocyte % (Auto) 0 % Neutrophils (%) (Auto) 77 H 42-75 % Lymphocytes (%) (Auto) 12 12-44 % Monocytes (%) (Auto) 8 0-12 % Eosinophils (%) (Auto) 2 0-10 % Basophils (%) (Auto) 1 0-10 % Neutrophils # (Auto) 6.0 1.8-7.8 X 10^3 Lymphocytes # (Auto) 0.9 L 1.0-4.0 X 10^3 Monocytes # (Auto) 0.6 0.0-1.0 X 10^3 Eosinophils # (Auto) 0.2 0.0-0.3 10^3/uL Basophils # (Auto) 0.0 0.0-0.1 10^3/uL Immature Granulocyte # (Auto) 0.0 0.0-0.1 10^3/uL Sodium Level 139 135-145 MMOL/L Potassium Level 4.0 3.6-5.0 MMOL/L Chloride Level 104 98-107 MMOL/L Carbon Dioxide Level 26 21-32 MMOL/L Anion Gap 9 5-14 MMOL/L Blood Urea Nitrogen 11 7-18 MG/DL Creatinine 0.98 0.60-1.30 MG/DL Estimat Glomerular Filtration Rate 110 BUN/Creatinine Ratio 11 Glucose Level 154 H 70-105 MG/DL Calcium Level 9.6 8.5-10.1 MG/DL Corrected Calcium 9.3 8.5-10.1 MG/DL Total Bilirubin 0.8 0.1-1.0 MG/DL Aspartate Amino Transf (AST/SGOT) 38 H 5-34 U/L Alanine Aminotransferase (ALT/SGPT) 65 H 0-55 U/L Alkaline Phosphatase 54 40-136 U/L Total Protein 7.9 6.4-8.2 GM/DL Albumin 4.4 3.2-4.5 GM/DL Lipase 22 8-78 U/L Urine Color YELLOW Urine Clarity CLEAR Urine pH 6.0 5-9 Urine Specific [place] 1.025 H 1.016-1.022 Urine Protein NEGATIVE NEGATIVE Urine Glucose (UA) NEGATIVE NEGATIVE Urine Ketones NEGATIVE NEGATIVE Urine Nitrite NEGATIVE NEGATIVE Urine Bilirubin NEGATIVE NEGATIVE Urine Urobilinogen 2.0 < = 1.0 MG/DL Urine Leukocyte Esterase NEGATIVE NEGATIVE Urine RBC (Auto) TRACE-I H NEGATIVE Urine RBC NONE /HPF Urine WBC NONE /HPF Urine Crystals NONE /LPF Urine Bacteria TRACE /HPF Urine Casts NONE /LPF Urine Mucus SMALL H /LPF Urine Culture Indicated NO My Orders Orders - ALANNAH MCKENNA Cbc With Automated Diff (05/20/23 14:44) Comprehensive Metabolic Panel (05/20/23 14:44) Lipase (05/20/23 14:44) Ua Culture If Indicated (05/20/23 14:44) Abdomen/Kub 1[place] (05/20/23 14:44) Vital Signs/I&O 05/20/23 05/20/23 14:25 15:56 Temp 37.0 37.0 Pulse 108 108 Resp 16 16 B/P (MAP) 123/75 (91) 123/75 Pulse Ox 96 96 Blood Pressure Mean: 91 Departure Communication (PCP) Reviewed previous ER visits, H&P, lab testing. No history of previous abdominal surgery. Differential diagnosis of constipation, UTI, urolithiasis, ga stroenteritis. Patient last bowel movement 2 days ago. Denies any vomiting. On exam bilateral lower abdominal discomfort. No localized pain. Does not appear in distress. Stable vital signs. CBC, CMP, lipase, urinalysis with abdominal KUB. Urinalysis with trace blood. No evidence of infection. Normal white blood count, kidney function. Slight elevated liver enzymes. Normal lipase. Blood sugar 154. States he does feel like he is gassy and has been passing gas. Abdominal x-ray did not show any urolithiasis, nephrolithiasis. No evidence of obstruction or large amount of stool. Patient states he has mild discomfort at this time and refused anything for pain. Does not appear to be a surgical abdomen. He is afebrile with normal white blood count. Does not appear toxic or septic. Nonspecific abdominal pain. If continued no bowel movement discussed taking oral laxatives. Discussed high-fiber diet. Discussed anti-inflammatories, Gas-X at this time. Continue monitoring at this time. If any worsening symptoms to return back to ED for further evaluation. Follow-up your PCP in 2 days in 2 days Impression Primary Impression: Abdominal pain Disposition: HOME, SELF-CARE Condition: Stable Departure-Patient Inst. Decision time for Depature: 15:51 Referrals: [facility] (PCP/Family) Primary Care Physician Patient Instructions: Abdominal Pain, Adult ED Add. Discharge Instructions: Monitoring symptoms at home. If any worsening symptoms return back to ED. Anti-inflammatories for pain. Gas-X for gas or bloating All discharge instructions reviewed with patient and/or family. Voiced understanding. ALANNAH MCKENNA May 20, 2023 14:49
[2023-05-20 15:01] LABS: BASOPHILS % (AUTO) 1 % (0-10); EOSINOPHILS # (AUTO) 0.2 10^3/uL (0.0-0.3); EOSINOPHILS % (AUTO) 2 % (0-10); HEMATOCRIT 43 % (40-54); HEMOGLOBIN 14.6 g/dL (13.3-17.7); LYMPHOCYTES # (AUTO) 0.9 X 10^3 (1.0-4.0); LYMPHOCYTES % (AUTO) 12 % (12-44); MEAN CORPUSCULAR HEMOGLOBIN 30 pg (25-34); MEAN CORPUSCULAR HGB CONC 34 g/dL (32-36); MEAN CORPUSCULAR VOLUME 87 fL (80-99); MEAN PLATELET VOLUME 10.8 fL (9.0-12.2); MONOCYTES # (AUTO) 0.6 X 10^3 (0.0-1.0); MONOCYTES % (AUTO) 8 % (0-12); NEUTROPHILS % (AUTO) 77 % (42-75); PLATELET COUNT 236 10^3/uL (130-400); WHITE BLOOD COUNT 7.8 10^3/uL (4.3-11.0)
[2023-05-20 15:06] LABS: ALBUMIN 4.4 GM/DL (3.2-4.5)
[2023-05-20 15:08] LABS: CALCIUM 9.6 MG/DL (8.5-10.1)
--- NOTE | 2023-05-20 15:08 | Diagnostic Imaging Report ---
INDICATION: Abdominal pain Abdominal film obtained at 3:00 hours p.m. The abdominal bowel gas pattern is unremarkable. There is no overt obstruction or ileus. There are no suspicious calcifications. IMPRESSION: Unremarkable abdominal radiographs. Dictated by: Dictated on workstation # [id number]
[2023-05-20 15:09] LABS: TOTAL PROTEIN 7.9 GM/DL (6.4-8.2)
[2023-05-20 15:11] LABS: BILIRUBIN,TOTAL 0.8 MG/DL (0.1-1.0)
[2023-05-20 15:20] LABS: BILIRUBIN,URINE NEGATIVE (NEGATIVE); CLARITY,URINE CLEAR; COLOR,URINE YELLOW; GLUCOSE, URINE (UA) NEGATIVE (NEGATIVE); KETONES,URINE NEGATIVE (NEGATIVE); LEUKOCYTE ESTERASE ,URINE NEGATIVE (NEGATIVE); NITRITE,URINE NEGATIVE (NEGATIVE); PROTEIN,URINE NEGATIVE (NEGATIVE)
[2023-05-20 15:28] LABS: BACTERIA,URINE TRACE /HPF
[2023-05-20 15:40] LABS: CREATININE SERUM 0.98 MG/DL (0.60-1.30)
[2023-05-20 15:56] VITALS: BP 123/75
== END 2023-05-20 15:56 | disposition home or self-care (01) ==
LOC: EDUNIT# 14:14 → ER 14:18
DX: R10.32 Left lower quadrant pain (principal); R10.31 Right lower quadrant pain
CPT/HCPCS: 36415; 74018; 80053; 81000; 83690; 85025